=== PATIENT | female | born 1975 | race Hispanic/Latino ===

== ENCOUNTER 2018-11-30 15:34 | Inpatient (IN) | payer SELFPAY, OTHER | END 2018-12-03 19:00 | disposition home or self-care (01) | LOC: EDH 15:34 → 3BH 12-01 00:47 → EDHIP 20:25 | DX: K62.5 Hemorrhage of anus and rectum (principal); D62 Acute posthemorrhagic anemia; R59.1 Generalized enlarged lymph nodes; E11.65 Type 2 diabetes mellitus with hyperglycemia ==